=== PATIENT | female | born 1950 | race Caucasian/White ===

== ENCOUNTER 2016-08-28 12:20 | Outpatient (CLI) | payer OTHER ==
--- NOTE | 2016-08-28 13:13 | DIAGNOSTIC IMAGING REPORT ---
PROCEDURE: XR WRIST MIN 3 VIEWS - LEFT INDICATION: Left wrist pain. TECHNIQUE: Four views. COMPARISON: None. FINDINGS: There is severe arthritic changes in joint space narrowing of the radial scaphoid joint and lunate/capitate joint. There are moderate arthritic change of the scaphoid/multangular joint. The rest of the osseous structures and joint spaces are normal. If an occult scaphoid fracture is suspected clinically, follow-up examination in 10-14 days may be of assistance. IMPRESSION: 1. 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
== END 2016-08-28 23:00 | disposition home or self-care (01) ==
LOC: XR SRH 12:20
DX: M19.032 Primary osteoarthritis, left wrist (principal)